=== PATIENT | male | born 1950 | race Caucasian/White ===

== ENCOUNTER → 2019-11-05 11:50 | Outpatient (BNVA) | payer MEDICARE, OTHER, SELFPAY | PROVIDERS: PCP Nurse Practitioner Family; Visit Provider Nurse Practitioner | DX: R05 Cough (principal); R50.9 Fever, unspecified; J40 Bronchitis, not specified as acute or chronic | CPT/HCPCS: 71046; 85025; 87400; 87635 ==

== ENCOUNTER → 2021-03-19 11:10 | Outpatient (BNVA) | payer MEDICARE, OTHER, SELFPAY | PROVIDERS: PCP Nurse Practitioner Family; Visit Provider Nurse Practitioner Family | DX: Z20.822 Contact with and (suspected) exposure to COVID-19 (principal) | CPT/HCPCS: 87635 ==

== ENCOUNTER 2021-03-23 09:32 | Outpatient (CLI) | payer MEDICARE, OTHER, SELFPAY ==
[2021-03-23 09:53] VITALS: BP 111/62; PULSE 57; RESP 16; TEMP 36.4; O2SAT 95; BMI 27.1
[2021-03-23 10:24] VITALS: BP 104/63; PULSE 58; RESP 17; O2SAT 98
[2021-03-23 11:34] VITALS: BP 106/74; PULSE 91; RESP 16; TEMP 36.6; O2SAT 94
== END 2021-03-23 09:33 | disposition home or self-care (01) ==
PROVIDERS: PCP Nurse Practitioner; Visit Provider Nurse Practitioner
DX: U07.1 COVID-19 (principal)
CPT/HCPCS: 96365